=== PATIENT | female | born 2000 | race Two or more races ===

== ENCOUNTER 2021-02-26 12:02 | Inpatient (IN) | payer OTHER ==
[~2021-02-26] VITALS: Ht 157.5 cm; Wt 49.9 kg
[~2021-02-26 12:02] MED LIST: LEVSIN/SL0.125 MG SL; PRENATABS RX T1 EACH PO; TRAMADOL HCL50 MG PO
[2021-02-26] MEDS ORDERED: PEPCID AC20 MG (12:15)
[2021-02-26] MEDS ORDERED: MILLIPRED DP5 MG (12:15)
[2021-02-27] MEDS ORDERED: BENZONATATE100 MG (08:08)
[2021-02-27] MEDS ORDERED: LEVALBUTER0.63 MG/3 (08:08)
[2021-03-06] MEDS ORDERED: LEVOFLOXACIN500 MG PO (12:39)
[2021-03-06] MEDS ORDERED: INTEGRA F CAPS1 EACH PO (12:43)
[2021-03-06] MEDS ORDERED: ULTRAM50 MG PO (12:45)
[2021-03-06] MEDS ORDERED: PROTONIX40 MG PO (12:45)
== END 2021-03-06 13:52 | disposition home or self-care (01) | DRG 345 ==
LOC: ER 12:02 → SURH 12:55
PROVIDERS: Urology; ADMIT Surgery; ATTEND Surgery
PROC: 0TJB8ZZ Inspection of Bladder, Via Natural or Artificial Opening Endoscopic (ICD-10-PCS; 2021-03-04)
PROC: BT1DYZZ Fluoroscopy of Right Kidney, Ureter and Bladder using Other Contrast (ICD-10-PCS; 2021-03-04)
PROC: 0TJ98ZZ Inspection of Ureter, Via Natural or Artificial Opening Endoscopic (ICD-10-PCS; 2021-03-04)
PROC: 0DW Gastrointestinal System, Revision (ICD-10-PCS; principal; 2021-03-04 09:00)
PROC: 0T9030Z Drainage of Right Kidney with Drainage Device, Percutaneous Approach (ICD-10-PCS; 2021-03-04 09:00)
DX: K51.818 Other ulcerative colitis with other complication (principal); T81.49XA Infection following a procedure, other surgical site, initial encounter; N13.1 Hydronephrosis with ureteral stricture, not elsewhere classified; N13.39 Other hydronephrosis; K94.19 Other complications of enterostomy; K91.858 Other complications of intestinal pouch; M41.86 Other forms of scoliosis, lumbar region; F43.20 Adjustment disorder, unspecified; Z90.49 Acquired absence of other specified parts of digestive tract; Z79.52 Long term (current) use of systemic steroids

== ENCOUNTER 2021-04-02 21:37 | Inpatient (IN) | payer OTHER ==
[~2021-04-02] VITALS: Ht 160 cm; Wt 49.9 kg
[~2021-04-02 21:37] MED LIST changes: +BENZONATATE100 MG; +INTEGRA F CAPS1 EACH PO; +LEVALBUTER0.63 MG/3; +LEVOFLOXACIN500 MG PO; +MILLIPRED DP5 MG; +PEPCID AC20 MG; +PROTONIX40 MG PO; +ULTRAM50 MG PO
[2021-04-04] MEDS ORDERED: BENZONATATE100 MG (08:21)
[2021-04-04] MEDS ORDERED: LEVALBUTER0.63 MG/3 (08:21)
[2021-04-05] MEDS ORDERED: CIPRO500 MG PO (15:11)
[2021-04-05] MEDS ORDERED: INTEGRA F CAPS1 EACH PO (15:11)
[2021-04-05] MEDS ORDERED: CARAFATE1 GM PO (16:25)
[2021-04-05] MEDS ORDERED: PEPCID AC20 MG PO (16:25)
[2021-04-05] MEDS ORDERED: ABANEU-SL TABL1 EACH SL (16:25)
== END 2021-04-05 21:37 | disposition home or self-care (01) | DRG 690 ==
LOC: ER 21:37 → SURH 04-03 11:00 → SEC-K 04-03 11:00 → SURH 04-03 17:42
PROVIDERS: ADMIT Internal Medicine Geriatric Medicine; ATTEND Internal Medicine Geriatric Medicine
PROC: BW21YZZ Computerized Tomography (CT Scan) of Abdomen and Pelvis using Other Contrast (ICD-10-PCS; principal; 2021-04-03)
PROC: 3E0F7SF Introduction of Other Gas into Respiratory Tract, Via Natural or Artificial Opening (ICD-10-PCS; 2021-04-03)
DX: N39.0 Urinary tract infection, site not specified (principal); R33.8 Other retention of urine; M54.89 Other dorsalgia; B96.89 Other specified bacterial agents as the cause of diseases classified elsewhere; R10.9 Unspecified abdominal pain; Z20.822 Contact with and (suspected) exposure to COVID-19

== ENCOUNTER 2021-04-15 11:00 | Inpatient (IN) | payer OTHER ==
[~2021-04-15] VITALS: Ht 160 cm; Wt 49.0 kg
[~2021-04-15 11:00] MED LIST changes: +ABANEU-SL TABL1 EACH SL; +CARAFATE1 GM PO; +CIPRO500 MG PO; +PEPCID AC20 MG PO
[2021-04-22] MEDS ORDERED: BENZONATATE100 MG (11:29)
[2021-04-25] MEDS ORDERED: PEPCID AC20 MG PO (08:45)
[2021-04-25] MEDS ORDERED: CARAFATE1 GM PO (08:45)
[2021-04-25] MEDS ORDERED: GABAPENTIN300 MG PO (08:46)
[2021-04-25] MEDS ORDERED: NORFLEX100MG PO (08:46)
[2021-04-25] MEDS ORDERED: INTEGRA F CAPS1 EACH PO (08:48)
== END 2021-04-25 16:55 | disposition home or self-care (01) | DRG 940 ==
LOC: SURH 04-22 05:13 → O/R 04-22 05:13 → SURG-SUITE 04-22 07:00 → SURH 04-22 15:44
PROVIDERS: Surgery; ADMIT Urology; ATTEND Urology
PROC: 0DSB4ZZ Reposition Ileum, Percutaneous Endoscopic Approach (ICD-10-PCS; principal; 2021-04-22 07:00)
PROC: 3E0F7GC Introduction of Other Therapeutic Substance into Respiratory Tract, Via Natural or Artificial Opening (ICD-10-PCS; 2021-04-22 07:00)
PROC: 0TS64ZZ Reposition Right Ureter, Percutaneous Endoscopic Approach (ICD-10-PCS; 2021-04-22 07:00)
PROC: 30233N1 Transfusion of Nonautologous Red Blood Cells into Peripheral Vein, Percutaneous Approach (ICD-10-PCS; 2021-04-24)
DX: Z93.2 Ileostomy status (principal); K68.11 Postprocedural retroperitoneal abscess; K51.011 Ulcerative (chronic) pancolitis with rectal bleeding; D64.9 Anemia, unspecified; J45.20 Mild intermittent asthma, uncomplicated; N13.5 Crossing vessel and stricture of ureter without hydronephrosis; D50.9 Iron deficiency anemia, unspecified; Z79.52 Long term (current) use of systemic steroids; N35.82 Other urethral stricture, female; M41.86 Other forms of scoliosis, lumbar region

== ENCOUNTER 2021-05-25 13:37 | Emergency (ER) | payer OTHER ==
[~2021-05-25] VITALS: Ht 160 cm; Wt 49.0 kg
[~2021-05-25 13:37] MED LIST changes: +GABAPENTIN300 MG PO; +NORFLEX100MG PO
[2021-05-25] MEDS ORDERED: MACROBID 100 M100 MG PO (18:35)
== END 2021-05-25 18:54 | disposition home or self-care (01) ==
LOC: ER 13:37
DX: N39.0 Urinary tract infection, site not specified (principal); R10.2 Pelvic and perineal pain; R11.11 Vomiting without nausea; R10.84 Generalized abdominal pain

== ENCOUNTER 2021-06-06 10:08 | Emergency (ER) | payer OTHER ==
[~2021-06-06] VITALS: Ht 160 cm; Wt 44.5 kg
[~2021-06-06 10:08] MED LIST changes: +MACROBID 100 M100 MG PO
== END 2021-06-06 15:34 | disposition home or self-care (01) ==
LOC: ER 10:08
DX: R11.11 Vomiting without nausea (principal)

== ENCOUNTER 2021-08-06 22:26 | Inpatient (IN) | payer OTHER ==
[~2021-08-06] VITALS: Ht 160 cm; Wt 45.8 kg
== END 2021-08-13 16:09 | disposition home or self-care (01) | DRG 660 ==
LOC: ER 22:26 → SEC-K 08-07 06:45 → SURH 08-07 06:45
PROVIDERS: Urology; ADMIT Internal Medicine Geriatric Medicine; ATTEND Internal Medicine Geriatric Medicine
PROC: 0T768DZ Dilation of Right Ureter with Intraluminal Device, Via Natural or Artificial Opening Endoscopic (ICD-10-PCS; principal; 2021-08-07 16:30)
DX: N13.39 Other hydronephrosis (principal); N30.00 Acute cystitis without hematuria; R10.9 Unspecified abdominal pain; Z20.822 Contact with and (suspected) exposure to COVID-19

== ENCOUNTER 2021-09-02 14:28 | Outpatient (CLI) | payer OTHER | END 2021-09-02 14:36 | disposition home or self-care (01) | LOC: SONOGRAMA 14:28 | PROVIDERS: ATTEND Obstetrics & Gynecology | DX: N83.291 Other ovarian cyst, right side (principal); N94.0 Mittelschmerz; R10.2 Pelvic and perineal pain; N94.89 Other specified conditions associated with female genital organs and menstrual cycle ==

== ENCOUNTER 2021-12-23 12:36 | Day surgery (SDC) | payer OTHER | END 2021-12-23 15:40 | disposition home or self-care (01) | LOC: AMB-ENDOS 12:36 | PROVIDERS: ATTEND Surgery | DX: K62.4 Stenosis of anus and rectum (principal); K62.89 Other specified diseases of anus and rectum ==

== ENCOUNTER 2022-01-27 14:18 | Inpatient (IN) | payer OTHER ==
[~2022-01-27] VITALS: Ht 157.5 cm; Wt 50.3 kg
[2022-01-31] MEDS ORDERED: METRONIDAZOLE500 MG PO (16:19)
[2022-01-31] MEDS ORDERED: CIPRO500 MG PO (16:19)
[2022-01-31] MEDS ORDERED: IMODIUM A-D2 M2 PO (16:20)
[2022-01-31] MEDS ORDERED: LEVSIN/SL0.125 MG SL (16:21)
[2022-01-31] MEDS ORDERED: PROTONIX40 MG PO (16:22)
== END 2022-01-31 19:13 | disposition home or self-care (01) | DRG 387 ==
LOC: ER 14:18 → SEC-K 22:55 → MEDI 01-29 11:23
PROVIDERS: ADMIT Surgery; ATTEND Surgery
PROC: BW21ZZZ Computerized Tomography (CT Scan) of Abdomen and Pelvis (ICD-10-PCS; principal; 2022-01-27)
PROC: 0DJD8ZZ Inspection of Lower Intestinal Tract, Via Natural or Artificial Opening Endoscopic (ICD-10-PCS; 2022-01-28)
DX: K51.818 Other ulcerative colitis with other complication (principal); K62.4 Stenosis of anus and rectum; K52.89 Other specified noninfective gastroenteritis and colitis; Z90.49 Acquired absence of other specified parts of digestive tract; Z20.822 Contact with and (suspected) exposure to COVID-19

== ENCOUNTER 2023-04-22 12:30 | Emergency (ER) | payer OTHER ==
[~2023-04-22] VITALS: Ht 160 cm; Wt 54.4 kg
[~2023-04-22 12:30] MED LIST changes: +IMODIUM A-D2 M2 PO; +METRONIDAZOLE500 MG PO
== END 2023-04-22 18:26 | disposition home or self-care (01) ==
LOC: ER 12:30
DX: R10.31 Right lower quadrant pain (principal); Z88.8 Allergy status to other drugs, medicaments and biological substances; Z20.822 Contact with and (suspected) exposure to COVID-19

== ENCOUNTER 2023-05-16 13:38 | Inpatient (IN) | payer OTHER ==
[~2023-05-16] VITALS: Ht 152.4 cm; Wt 56.2 kg
[2023-05-16] MEDS ORDERED: ALBUTEROL2.5 MG/3 M IH (13:43)
[2023-05-22] MEDS ORDERED: FAMOTIDINE20 MG PO (10:24)
[2023-05-22] MEDS ORDERED: PEXEVA10 MG PO (10:24)
[2023-05-22] MEDS ORDERED: IPRATROPIU0.2 MG/1 M IH (10:24)
[2023-05-22] MEDS ORDERED: CLONAZEPAM0.5 MG PO (10:24)
[2023-05-22] MEDS ORDERED: BENZONATATE100 MG PO (10:24)
[2023-05-22] MEDS ORDERED: prednisone PO (10:24)
== END 2023-05-22 13:07 | disposition home or self-care (01) | DRG 202 ==
LOC: ER 13:38 → MEDJ 22:17
PROVIDERS: ADMIT Internal Medicine; ATTEND Internal Medicine
PROC: BW24YZZ Computerized Tomography (CT Scan) of Chest and Abdomen using Other Contrast (ICD-10-PCS; principal; 2023-05-19)
PROC: B24BZZZ Ultrasonography of Heart with Aorta (ICD-10-PCS; 2023-05-19)
PROC: 4A12X4Z Monitoring of Cardiac Electrical Activity, External Approach (ICD-10-PCS; 2023-05-19)
DX: J45.51 Severe persistent asthma with (acute) exacerbation (principal); K51.80 Other ulcerative colitis without complications; R09.02 Hypoxemia; F41.0 Panic disorder [episodic paroxysmal anxiety]; Z20.822 Contact with and (suspected) exposure to COVID-19

== ENCOUNTER 2023-06-30 00:15 | Emergency (ER) | payer OTHER ==
[~2023-06-30] VITALS: Ht 160 cm; Wt 55.3 kg
[~2023-06-30 00:15] MED LIST changes: +ALBUTEROL2.5 MG/3 M IH; +BENZONATATE100 MG PO; +CLONAZEPAM0.5 MG PO; +FAMOTIDINE20 MG PO; +IPRATROPIU0.2 MG/1 M IH; +PEXEVA10 MG PO; +prednisone PO
== END 2023-06-30 03:51 | disposition home or self-care (01) ==
LOC: ER 00:15
DX: J45.901 Unspecified asthma with (acute) exacerbation (principal)

== ENCOUNTER 2023-06-30 13:10 | Emergency (ER) | payer OTHER ==
[~2023-06-30] VITALS: Ht 154.9 cm; Wt 56.7 kg
== END 2023-06-30 18:24 | disposition home or self-care (01) ==
LOC: ER 13:10
DX: J45.901 Unspecified asthma with (acute) exacerbation (principal); F41.0 Panic disorder [episodic paroxysmal anxiety]; Z20.822 Contact with and (suspected) exposure to COVID-19

== ENCOUNTER 2023-07-23 10:29 | Outpatient (CLI) | payer OTHER | END 2023-07-23 10:39 | disposition home or self-care (01) | LOC: SONOGRAMA 10:29 | PROVIDERS: ATTEND Urology | DX: N13.4 Hydroureter (principal); N13.1 Hydronephrosis with ureteral stricture, not elsewhere classified; R33.9 Retention of urine, unspecified ==

== ENCOUNTER 2024-06-20 09:15 | Inpatient (IN) | payer OTHER ==
[~2024-06-20] VITALS: Ht 157.5 cm; Wt 64.4 kg
[~2024-06-20 09:15] MED LIST changes: +MACRODANTIN100 M1 PO
[2024-06-20] MEDS ORDERED: PROAIR RESPICL90 MCG IH (14:24)
[2024-06-20] MEDS ORDERED: PULMICORT FLEX90 MCG IH (14:25)
[2024-06-20] MEDS ORDERED: VENTOLIN HFA18 GM IH (14:25)
[2024-06-20] MEDS ORDERED: ZYRTEC10 M3 PO (14:25)
[2024-06-27] MEDS ORDERED: BUPIVACAINE HCL/MPF 0.5% 30ML VIAL ONE (07:47)
[2024-06-27] MEDS ORDERED: LIDOCAINE HCL 1%/EPINEPHRINE 20ML VIAL IJ ONE (16:03)
[2024-06-27] MEDS ORDERED: BUPIVACAINE HCL/Mpf 0.5% 10ML VIAL ONE (16:03)
[2024-06-27] MEDS ORDERED: CEFOXITIN SODIUM 2,000 MG VIAL IV ONE (17:15)
[2024-06-27] MEDS ORDERED: SUGAMMADEX SODIUM 200 MG/2 ML VIAL IV ONE (17:56)
[2024-06-27] MEDS ORDERED: RINGERS SOLUTION,LACTATED 1,000 ML IV SCH (18:30)
[2024-06-27] MEDS ORDERED: MORPHINE SULFATE 4 MG/ML CARTRIDGE IV PRN (18:30)
[2024-06-27] MEDS ORDERED: OxyCODONE HCL 5 MG TABLET (ROXICODONE) PO PRN (18:30)
[2024-06-27] MEDS ORDERED: ONDANSETRON HCL 2 MG/ML VIAL IV PRN (18:30)
[2024-06-27] MEDS ORDERED: LEVALBUTEROL HCL 0.63 MG/3 ML SOLUTION IH PRN (18:45)
[2024-06-27] MEDS ORDERED: ACETAMINOPHEN 500 MG GEL..CAP PO SCH (20:00)
[2024-06-27] MEDS ORDERED: FAMOTIDINE/PF 20 MG/2 ML VIAL ONE (20:15)
[2024-06-27] MEDS ORDERED: SIMETHICONE 125 MG CAPSULE PO SCH (21:00)
[2024-06-27] MEDS ORDERED: FAMOTIDINE/PF 20 MG/2 ML VIAL IV PUSH SCH (21:00)
[2024-06-28] MEDS ORDERED: GABAPENTIN 300 MG CAPSULE PO SCH (01:00)
[2024-06-28] MEDS ORDERED: TRAMADOL HCL50 MG PO (08:26)
[2024-06-28] MEDS ORDERED: HYOSCYAMINE SULFATE 0.125 MG TAB.SUBL SL SCH (09:00)
[2024-06-28] MEDS ORDERED: ENOXAPARIN SODIUM 40 MG/0.4 ML SYRINGE SUBCUTANEO SCH (17:00)
[2024-06-29] MEDS ORDERED: ENOXAPARIN SODIUM 40 MG/0.4 ML SYRINGE SUBCUTANEO SCH (09:00)
== END 2024-06-28 13:40 | disposition home or self-care (01) | DRG 354 ==
LOC: O/R 06-27 07:01 → SURG 06-27 07:01
PROVIDERS: ADMIT Surgery; ATTEND Surgery
PROC: 0D7B8ZZ Dilation of Ileum, Via Natural or Artificial Opening Endoscopic (ICD-10-PCS; 2024-06-27)
PROC: 3E0F7GC Introduction of Other Therapeutic Substance into Respiratory Tract, Via Natural or Artificial Opening (ICD-10-PCS; 2024-06-27)
PROC: 0WUF4JZ Supplement Abdominal Wall with Synthetic Substitute, Percutaneous Endoscopic Approach (ICD-10-PCS; principal; 2024-06-27 13:45)
DX: K43.2 Incisional hernia without obstruction or gangrene (principal); K51.90 Ulcerative colitis, unspecified, without complications; K56.699 Other intestinal obstruction unspecified as to partial versus complete obstruction; Z20.822 Contact with and (suspected) exposure to COVID-19; J45.20 Mild intermittent asthma, uncomplicated

== ENCOUNTER 2024-06-29 17:24 | Inpatient (IN) | payer OTHER ==
[~2024-06-29] VITALS: Ht 160 cm; Wt 63.5 kg
[~2024-06-29 17:24] MED LIST changes: +PROAIR RESPICL90 MCG IH; +PULMICORT FLEX90 MCG IH; +VENTOLIN HFA18 GM IH; +ZYRTEC10 M3 PO
--- NOTE | 2024-06-29 17:32 | NUR ---
PTE ALERTA Y ORIENTADA X3. REFIERE DONNA SIDO OPERADA EL [address]MARLA ASENCIO DE JJ HERNIA EN EL ABDOMEN EN DONDE TUVO JJ ILEOSTOMIA HACE MARTIN ANOS. AL MOMENTO DE TRIAGE REFIERE MAREOS Y SOBRE 15 VOMITOS DESDE LA MADRUGADA DE HOY SE ANDRESSA SV Y SE UBICA
[2024-06-29] MEDS ORDERED: ONDANSETRON HCL 2 MG/ML VIAL IV ONE (18:00)
[2024-06-29] MEDS ORDERED: 0.9 % SODIUM CHLORIDE 500 ML IV SCH (18:00)
[2024-06-29] MEDS ORDERED: MORPHINE SULFATE 4 MG/ML CARTRIDGE IV ONE ×2 (18:00→18:15)
[2024-06-29] MEDS ORDERED: FAMOTIDINE/PF 20 MG/2 ML VIAL IV ONE (18:00)
[2024-06-29] MEDS ORDERED: FAMOTIDINE/PF 20 MG/2 ML VIAL ONE (18:10)
[2024-06-29] MEDS ORDERED: ONDANSETRON HCL 2 MG/ML VIAL ONE ×2 (18:10→18:12)
--- NOTE | 2024-06-29 18:21 | NUR ---
SE LE ORIENTA A PTE SOBRE TRATAMIENTO E INSTRUCCIONES A SEGUIR, ELISEO REFIERE ENTENDER. SE COLECTA MUESTRAS, SE CANALIZA Y SE ADMINISTRA MEDICAMENTO EMILIA ORDEN MEDICA
[2024-06-29 18:38] LABS: HEMATOCRIT 39.5 % (36.0-45.00); HEMOGLOBIN 13.8 g/dL (12.0-15.00); MEAN CELL VOLUME 83.2 fL (80.00-100.00); MEAN CORPUSCULAR HGB CONC 34.8 g/dl (32.0-36.0); PLATELET COUNT 300 K/uL (150-450); RED BLOOD COUNT 4.75 M/uL (4.00-6.00); RED CELL DISTRIBUTION WIDTH 15.2 % (11.5-14.5)
[2024-06-29 18:47] LABS: CALCIUM 10.2 mg/dL (8.5-10.1); CREATININE SERUM 0.78 mg/dL (0.55-1.02); GFR 90.73; POTASSIUM 3.9 mEq/L (3.5-5.1)
[2024-06-29 18:59] LABS: URINE APPEARANCE Cloudy; URINE BILIRRUBIN Small (NEGATIVE); URINE BLOOD Negative; URINE COLOR Dark Yellow; URINE GLUCOSE Negative (NEGATIVE); URINE LEUKOCYTE Moderate; URINE NITRATE Negative; URINE PROTEIN 30 (NEGATIVE); URINE UROBILINOGEN 0.2 E.U./dl
[2024-06-29 19:00] LABS: URINE BACTERIA 4519.5 uL (0.0-1933); URINE EPITHELIAL CELLS 99.7 uL (0.0-38.8); URINE RBC 7.1 uL (0.0-20.8); URINE WBC 314.2 uL (0.0-23.2)
[2024-06-29 19:08] LABS: INR 0.96; PARTIAL THROMBOPLASTIN TIME 28.2 SECONDS (22.0-34.0); PROTHROMBIN TIME 10.1 SECONDS (9.0-11.5)
[2024-06-29 19:39] LABS: URINE CAST 0.15 uL (0.0-1.40); URINE KETONE >=160 (NEGATIVE)
[2024-06-29] MEDS ORDERED: LIDOCAINE HCL VISCOUS 20MG/ML BLIST 15ML MM ONE (20:22)
[2024-06-29] MEDS ORDERED: MORPHINE SULFATE 4 MG/ML VIAL IV ONE (21:00)
--- NOTE | 2024-06-29 21:23 | NUR ---
SE COLOCA TUBO NASO GASTRICO POR FOSA IZQUIERDA SE OBSERVA [address] ML DE EGRESO SE CONFIRMA MEDIANTE AUSCULTACION
[2024-06-29] MEDS ORDERED: CEFTRIAXONE SODIUM 2,000 MG in 0.9 % SODIUM CHLORIDE 100 ML IV SCH (21:29)
[2024-06-29] MEDS ORDERED: ONDANSETRON HCL 4 MG in 0.9 % SODIUM CHLORIDE 50 ML IV PRN (21:30)
[2024-06-29] MEDS ORDERED: ACETAMINOPHEN 500 MG GEL..CAP PO PRN (21:30)
[2024-06-29] MEDS ORDERED: METOCLOPRAMIDE HCL 5 MG/ML VIAL IM SCH (21:30)
[2024-06-29] MEDS ORDERED: MEPERIDINE HCL/PF 25 MG/ML VIAL IM PRN ×2 (21:45)
[2024-06-29] MEDS ORDERED: RINGERS SOLUTION,LACTATED 1,000 ML IV SCH (21:45)
[2024-06-29] MEDS ORDERED: CEFTRIAXONE SODIUM 2,000 MG VIAL ONE (22:09)
[2024-06-29] MEDS ORDERED: METOCLOPRAMIDE HCL 5 MG/ML VIAL ONE ×2 (22:09→22:13)
[2024-06-30] MEDS ORDERED: FAMOTIDINE/PF 20 MG in 0.9 % SODIUM CHLORIDE 8 ML IV PUSH SCH (09:00)
[2024-06-30] MEDS ORDERED: METRONIDAZOLE/SODIUM CHLORIDE 100 ML IV SCH (17:00)
[2024-06-30] MEDS ORDERED: PANTOPRAZOLE SODIUM 40 MG/VIAL VIAL IV STA (21:20)
[2024-06-30] MEDS ORDERED: ENOXAPARIN SODIUM 40 MG/0.4 ML SYRINGE SUBCUTANEO STA (21:21)
[2024-07-01] MEDS ORDERED: PANTOPRAZOLE SODIUM 40 MG/VIAL VIAL IV SCH (06:00)
[2024-07-01 07:13] LABS: HEMATOCRIT 34.4 % (36.0-45.00); HEMOGLOBIN 12.5 g/dL (12.0-15.00); MEAN CELL VOLUME 82.1 fL (80.00-100.00); MEAN CORPUSCULAR HEMOGLOBIN 29.7 pg (27.00-32.0); MEAN CORPUSCULAR HGB CONC 36.2 g/dl (32.0-36.0); PLATELET COUNT 346 K/uL (150-450); RED BLOOD COUNT 4.19 M/uL (4.00-6.00); RED CELL DISTRIBUTION WIDTH 15.3 % (11.5-14.5)
[2024-07-01 07:35] LABS: ALBUMIN 3.4 gm/dL (3.4-5.0); BILIRUBIN TOTAL 0.81 mg/dL (0.3-1.2); CALCIUM 8.9 mg/dL (8.5-10.1); CREATININE SERUM 0.74 mg/dL (0.55-1.02); GFR 96.42; GLOBULINA 3.4 G/DL (2.4-3.5); MAGNESIUM 2.1 mg/dL (1.8-2.4); PHOSPHOROUS 2.3 mg/dL (2.5-4.9); POTASSIUM 3.63 mEq/L (3.5-5.1); TOTAL PROTEIN 6.8 gm/dL (6.4-8.2)
[2024-07-01 07:40] LABS: C-REACTIVE PROTEIN 3.86 MG/DL (0.00-0.29)
[2024-07-01] MEDS ORDERED: NAPH,MB-DB/K PH,MBDB 1 PKT PACKET PO NR (11:15)
[2024-07-01] MEDS ORDERED: POTASSIUM PHOS,M-BASIC-D-BASIC 3 MM/ML VIAL IV ONE (13:00)
[2024-07-01] MEDS ORDERED: ENOXAPARIN SODIUM 40 MG/0.4 ML SYRINGE SUBCUTANEO SCH (17:00)
== END 2024-07-01 14:25 | disposition home or self-care (01) | DRG 389 ==
LOC: EMR PED 17:24 → ER 17:27 → SURH 21:54 → SEC-K 21:54 → SURH 06-30 00:56
PROVIDERS: General Practice; Internal Medicine Infectious Disease; ADMIT Surgery; ATTEND Surgery
PROC: BW21ZZZ Computerized Tomography (CT Scan) of Abdomen and Pelvis (ICD-10-PCS; principal; 2024-06-29)
DX: K56.0 Paralytic ileus (principal); N39.0 Urinary tract infection, site not specified; K56.609 Unspecified intestinal obstruction, unspecified as to partial versus complete obstruction; K29.70 Gastritis, unspecified, without bleeding; K21.9 Gastro-esophageal reflux disease without esophagitis

== ENCOUNTER 2025-09-07 14:43 | Inpatient (IN) | payer OTHER ==
[~2025-09-07] VITALS: Ht 160 cm; Wt 59.0 kg
--- NOTE | 2025-09-07 15:05 | NUR ---
PACIENTE FEMINA, S/V EN PARAMETYROS, C/C VOMITOS, LLEGO EN AMBULANCIA PARMAEDICO [address], DE [facility], SE UBICA EN CAMA 11 OBSERVACION PARA SER EVALUADA.
[2025-09-07] MEDS ORDERED: 0.9 % SODIUM CHLORIDE 1,000 ML IV ONE (16:30)
[2025-09-07] MEDS ORDERED: ONDANSETRON HCL 2 MG/ML VIAL IV ONE ×2 (16:30→21:30)
[2025-09-07] MEDS ORDERED: KETOROLAC TROMETHAMINE 30 MG VIAL IV ONE (16:45)
[2025-09-07] MEDS ORDERED: FAMOTIDINE/PF 20 MG/2 ML VIAL IV ONE (16:45)
[2025-09-07] MEDS ORDERED: ACETAMINOPHEN 500 MG GEL..CAP PO ONE ×2 (16:45→18:01)
[2025-09-07] MEDS ORDERED: CIPROFLOXACIN IN 5 % DEXTROSE 400 MG/200 ML PIGGYBAG IV ONE ×2 (17:00→18:01)
[2025-09-07] MEDS ORDERED: METRONIDAZOLE/SODIUM CHLORIDE 500 MG/100 ML PIGGYBACK IV ONE ×2 (17:00→18:01)
[2025-09-07] MEDS ORDERED: ONDANSETRON HCL 2 MG/ML VIAL ONE ×2 (18:01→22:23)
[2025-09-07] MEDS ORDERED: DIATRIZOATE MEGLUMINE, SODIUM 30 ML BOTTLE ONE (18:02)
[2025-09-07] MEDS ORDERED: FAMOTIDINE/PF 20 MG/2 ML VIAL ONE (18:02)
[2025-09-07 18:46] LABS: BASO % 0.5 % (0.1-1.2); EOS # 0.01 (0.04-0.54); EOS % 0.3 % (0.7-7.0); LYMPH # 0.25 (1.18-3.74); LYMPH % 6.7 % (19.3-53.1); MEAN PLATELET VOLUME 10.10 fl (9.4-12.4); MONO # 0.27 (0.24-0.82); MONO % 7.2 % (4.7-12.5); NEUT # 3.18 (1.56-6.13); NEUT % 85.0 % (34.0-71.1); RED CELL DISTRIBUTION WIDTH 13.4 % (11.6-14.4)
--- NOTE | 2025-09-07 18:56 | NUR ---
PACIENTE ALERTA Y ORIENTADA X3. SE EDUCA SOBRE PROCESO DE VLADIMIR DE MUESTRAS, CANALIZACION Y ADMINISTRACION DE MEDICAMENTOS, REFIERE ENTENDER. SE EJECUTAN ORDENES BAJO MEDIDAS ASEPTICAS. SE HACE ENTREGA DE ENVASE PARA VLADIMIR DE U/A Y FECALES. SE HACE ENTREGA DE CONTRASTE PO, PENDIENTE A CT.
[2025-09-07 19:16] LABS: COVID-19 AG NEGATIVE (NEGATIVE)
[2025-09-07 19:42] LABS: URINE APPEARANCE Cloudy; URINE BILIRRUBIN Negative (NEGATIVE); URINE BLOOD Negative; URINE COLOR Yellow; URINE GLUCOSE Negative (NEGATIVE); URINE KETONE Trace (NEGATIVE); URINE LEUKOCYTE Small; URINE NITRATE Negative; URINE PROTEIN Trace (NEGATIVE); URINE UROBILINOGEN 1.0 E.U./dl
[2025-09-07 19:46] LABS: URINE BACTERIA 2744.1 uL (0.0-1933); URINE EPITHELIAL CELLS 86.7 uL (0.0-38.8); URINE RBC 4.8 uL (0.0-20.8); URINE WBC 118.8 uL (0.0-23.2)
[2025-09-07 19:48] LABS: ALT/SGPT 13.0 U/L (12-78); AST/SGOT 11.0 U/L (15-37); BILIRUBIN TOTAL 1.17 mg/dL (0.3-1.2); BUN CREA RATIO 19.0 (7.0-25.0); CREATININE SERUM 0.62 mg/dL (0.55-1.02); GFR 117.28; GLOBULINA 2.8 G/DL (2.4-3.5); GLUCOSE FASTING 89.0 mg/dL (65-100); OSMOLALITY SERUM 280.0 MOSM/KG (275-295)
[2025-09-07 19:54] LABS: URINE CAST 0.29 uL (0.0-1.40)
[2025-09-07] MEDS ORDERED: HYOSCYAMINE SULFATE 0.125 MG TAB.SUBL SL ONE (23:15)
[2025-09-07] MEDS ORDERED: CHOLESTYRAMINE/ASPARTAME LIGHT 4 G/PKT PACKET PO ONE (23:15)
[2025-09-07] MEDS ORDERED: 0.9 % SODIUM CHLORIDE 1,000 ML IV SCH (23:15)
[2025-09-07] MEDS ORDERED: PANTOPRAZOLE SODIUM 40 MG/VIAL VIAL IV ONE (23:15)
[2025-09-07] MEDS ORDERED: HYOSCYAMINE SULFATE 0.125 MG TAB.SUBL ONE (23:49)
[2025-09-08] MEDS ORDERED: CEFTRIAXONE SODIUM 2,000 MG in 0.9 % SODIUM CHLORIDE 100 ML IV SCH (14:20)
[2025-09-08] MEDS ORDERED: FAMOTIDINE/PF 20 MG in 0.9 % SODIUM CHLORIDE 8 ML IV PUSH SCH (14:21)
[2025-09-08] MEDS ORDERED: ONDANSETRON HCL 4 MG in 0.9 % SODIUM CHLORIDE 50 ML IV PRN (14:30)
[2025-09-08] MEDS ORDERED: DEXTROSE 5 % AND 0.9 % NACL 1,000 ML IV SCH (14:30)
[2025-09-08] MEDS ORDERED: MORPHINE SULFATE 2 MG/ML SYRINGE IV PRN (14:30)
[2025-09-08] MEDS ORDERED: ACETAMINOPHEN 500 MG GEL..CAP PO PRN (14:30)
[2025-09-08] MEDS ORDERED: ENOXAPARIN SODIUM 40 MG/0.4 ML SYRINGE SUBCUTANEO SCH (17:00)
[2025-09-08 19:19] LABS: INR 1.03
[2025-09-09 01:15] VITALS: BP 76/51; O2SAT 100
[2025-09-09 01:28] LABS: BASO % 0.6 % (0.1-1.2); EOS # 0.04 (0.04-0.54); EOS % 1.2 % (0.7-7.0); LYMPH # 0.84 (1.18-3.74); LYMPH % 24.9 % (19.3-53.1); MEAN PLATELET VOLUME 11.20 fl (9.4-12.4); MONO # 0.39 (0.24-0.82); MONO % 11.5 % (4.7-12.5); NEUT # 2.08 (1.56-6.13); NEUT % 61.5 % (34.0-71.1); RED CELL DISTRIBUTION WIDTH 13.8 % (11.6-14.4)
[2025-09-09 01:36] LABS: ERYTHROCYTE SEDIMENTATION RATE 1 mm/hr (0-20)
[2025-09-09 01:53] LABS: ALT/SGPT 14.0 U/L (12-78); AST/SGOT 15.0 U/L (15-37); BILIRUBIN TOTAL 0.28 mg/dL (0.3-1.2); BUN CREA RATIO 9.0 (7.0-25.0); CREATININE SERUM 0.68 mg/dL (0.55-1.02); GFR 105.42; GLOBULINA 2.5 G/DL (2.4-3.5); GLUCOSE FASTING 95.0 mg/dL (65-100); OSMOLALITY SERUM 279.0 MOSM/KG (275-295)
[2025-09-09 02:21] VITALS: BP 81/55; O2SAT 99
[2025-09-09 08:00] VITALS: BP 95/66; O2SAT 98
[2025-09-09] MEDS ORDERED: ORPHENADRINE CITRATE 30 MG/ML AMPUL IM PRN (12:00)
[2025-09-09 16:00] VITALS: BP 93/64; O2SAT 99
[2025-09-09] MEDS ORDERED: SOD FERRIC GLUC COMPLX/SUCROSE 62.5 MG in 0.9 % SODIUM CHLORIDE 50 ML IV SCH (17:22)
[2025-09-10 00:39] VITALS: BP 89/52; O2SAT 100
[2025-09-10 08:00] VITALS: BP 94/60; O2SAT 95
[2025-09-10 16:56] VITALS: BP 92/62; O2SAT 100
[2025-09-11 01:22] VITALS: BP 83/57; O2SAT 100
[2025-09-11 06:46] LABS: BASO % 0.4 % (0.1-1.2); EOS # 0.08 (0.04-0.54); EOS % 3.3 % (0.7-7.0); LYMPH # 1.31 (1.18-3.74); LYMPH % 54.6 % (19.3-53.1); MEAN PLATELET VOLUME 10.90 fl (9.4-12.4); MONO # 0.31 (0.24-0.82); NEUT # 0.68 (1.56-6.13); NEUT % 28.4 % (34.0-71.1); RED CELL DISTRIBUTION WIDTH 13.5 % (11.6-14.4)
[2025-09-11 07:38] LABS: ALT/SGPT 37 U/L (12-78); AST/SGOT 40 U/L (15-37); BILIRUBIN TOTAL 0.21 mg/dL (0.3-1.2); BUN CREA RATIO 8 (7.0-25.0); CREATININE SERUM 0.48 mg/dL (0.55-1.02); GFR 157.58; GLOBULINA 2.6 G/DL (2.4-3.5); GLUCOSE FASTING 90 mg/dL (65-100); OSMOLALITY SERUM 281 MOSM/KG (275-295)
[2025-09-11 07:53] LABS: MONO % 12.9 % (4.7-12.5)
[2025-09-11 08:00] VITALS: BP 94/64; O2SAT 99
[2025-09-11] MEDS ORDERED: MEROPENEM 500 MG/VIAL VIAL IV SCH (12:00)
[2025-09-11] MEDS ORDERED: fentaNYL CITRATE 50 MCG/ML AMPUL IV PUSH ONE (12:45)
[2025-09-11] MEDS ORDERED: MIDAZOLAM HCL 2 MG/2 ML VIAL IV ONE (12:45)
[2025-09-11] MEDS ORDERED: DIPHENHYDRAMINE HCL 50 MG/ML VIAL 1ML IV ONE (12:45)
[2025-09-11] MEDS ORDERED: MIDAZOLAM HCL 2 MG/2 ML VIAL IV PUSH ONE (13:00)
[2025-09-11] MEDS ORDERED: METOCLOPRAMIDE HCL 5 MG/5 ML BLIST.PACK PO STA (16:12)
[2025-09-11] MEDS ORDERED: PROMETHAZINE HCL 50 MG/ML AMPUL IM STA (16:12)
[2025-09-11] MEDS ORDERED: PROMETHAZINE HCL 50 MG/ML AMPUL IM ONE (16:20)
[2025-09-11] MEDS ORDERED: METOCLOPRAMIDE HCL 5 MG/ML VIAL IV STA (16:33)
[2025-09-11 16:41] VITALS: BP 102/71; O2SAT 98
[2025-09-11] MEDS ORDERED: PANTOPRAZOLE SODIUM 40 MG in 0.9 % SODIUM CHLORIDE 8 ML IV PUSH SCH (17:00)
[2025-09-12 00:30] VITALS: BP 92/60; O2SAT 98
[2025-09-12 06:24] LABS: BASO % 0.4 % (0.1-1.2); EOS # 0.01 (0.04-0.54); EOS % 0.4 % (0.7-7.0); LYMPH # 1.42 (1.18-3.74); LYMPH % 50.7 % (19.3-53.1); MEAN PLATELET VOLUME 10.60 fl (9.4-12.4); MONO # 0.35 (0.24-0.82); NEUT # 1.00 (1.56-6.13); NEUT % 35.6 % (34.0-71.1); RED CELL DISTRIBUTION WIDTH 13.5 % (11.6-14.4)
[2025-09-12 06:38] LABS: MONO % 12.5 % (4.7-12.5)
[2025-09-12 08:00] VITALS: BP 91/60; O2SAT 99
[2025-09-12] MEDS ORDERED: FLUCONAZOLE 100 MG TABLET PO NR (11:00)
[2025-09-12] MEDS ORDERED: CLOTRIMAZOLE 21GM VAG. CREAM.APPL VAG SCH (12:00)
[2025-09-12] MEDS ORDERED: SIMETHICONE 125 MG CAPSULE PO SCH (13:00)
[2025-09-12 16:14] VITALS: BP 110/72; BP 93/60; O2SAT 100
[2025-09-13 00:38] VITALS: BP 90/57; O2SAT 100
[2025-09-13] MEDS ORDERED: FLUCONAZOLE 100 MG TABLET PO SCH (09:00)
[2025-09-13 11:04] LABS: BASO % 0.3 % (0.1-1.2); EOS # 0.07 (0.04-0.54); EOS % 1.9 % (0.7-7.0); LYMPH # 1.55 (1.18-3.74); LYMPH % 41.8 % (19.3-53.1); MEAN PLATELET VOLUME 10.90 fl (9.4-12.4); MONO # 0.31 (0.24-0.82); MONO % 8.4 % (4.7-12.5); NEUT # 1.76 (1.56-6.13); NEUT % 47.3 % (34.0-71.1); RED CELL DISTRIBUTION WIDTH 13.4 % (11.6-14.4)
[2025-09-13 12:47] LABS: ALT/SGPT 322.0 U/L (12-78); AST/SGOT 412.0 U/L (15-37); BILIRUBIN TOTAL 0.46 mg/dL (0.3-1.2); BUN CREA RATIO 11.0 (7.0-25.0); CREATININE SERUM 0.54 mg/dL (0.55-1.02); GFR 137.55; GLOBULINA 3.0 G/DL (2.4-3.5)
[2025-09-13 12:56] LABS: GLUCOSE FASTING 110.0 mg/dL (65-100); OSMOLALITY SERUM 281.0 MOSM/KG (275-295)
[2025-09-13 13:45] LABS: CORTISOL 20.63 ug/dl; FOLIC ACID 16.53 ng/ml (4.78-20)
[2025-09-13 16:25] VITALS: BP 99/68; O2SAT 100
[2025-09-13] MEDS ORDERED: POTASSIUM PHOS,M-BASIC-D-BASIC 3 MM/ML VIAL IV ONE (17:00)
[2025-09-13] MEDS ORDERED: ONDANSETRON HCL 2 MG/ML VIAL IV PRN (18:00)
[2025-09-13 22:16] LABS: T4 TOTAL 11.96 UG/DL (4.8-13.9); TSH 1.1 uIU/mL (0.358-3.74)
[2025-09-14 01:23] VITALS: BP 89/68; O2SAT 100
[2025-09-14 07:20] LABS: BASO % 0.5 % (0.1-1.2); EOS # 0.11 (0.04-0.54); EOS % 2.8 % (0.7-7.0); LYMPH # 1.69 (1.18-3.74); LYMPH % 43.1 % (19.3-53.1); MEAN PLATELET VOLUME 10.40 fl (9.4-12.4); MONO # 0.42 (0.24-0.82); MONO % 10.7 % (4.7-12.5); NEUT # 1.65 (1.56-6.13); NEUT % 42.1 % (34.0-71.1); RED CELL DISTRIBUTION WIDTH 13.3 % (11.6-14.4)
[2025-09-14 08:00] LABS: ALT/SGPT 309.0 U/L (12-78); AST/SGOT 262.0 U/L (15-37); BILIRUBIN TOTAL 0.38 mg/dL (0.3-1.2); BILIRUBIN,CONJUGATED 0.12 mg/dL (0.0-0.2)
[2025-09-14 10:17] VITALS: BP 93/58; O2SAT 97
[2025-09-14 16:00] VITALS: BP 100/69; O2SAT 100
[2025-09-15 01:00] VITALS: BP 91/59; O2SAT 99
[2025-09-15 08:41] LABS: BASO % 0.4 % (0.1-1.2); BUN CREA RATIO 13.0 (7.0-25.0); CREATININE SERUM 0.4 mg/dL (0.55-1.02); EOS # 0.14 (0.04-0.54); EOS % 2.6 % (0.7-7.0); GFR 194.48; GLUCOSE FASTING 81.0 mg/dL (65-100); LYMPH # 1.53 (1.18-3.74); LYMPH % 28.6 % (19.3-53.1); MEAN PLATELET VOLUME 10.60 fl (9.4-12.4); MONO # 0.50 (0.24-0.82); MONO % 9.3 % (4.7-12.5); NEUT # 3.01 (1.56-6.13); NEUT % 56.3 % (34.0-71.1); OSMOLALITY SERUM 281.0 MOSM/KG (275-295); RED CELL DISTRIBUTION WIDTH 13.2 % (11.6-14.4)
[2025-09-16 09:07] LABS: hav igm Negative (Negative); hep b c Negative (Negative); hep b s ag Negative (Negative)
[2025-09-16 11:11] LABS: ACTH 5.9 pg/mL (7.2-63.3); vca igm ab 89.3 U/mL (0.0-35.9)
== END 2025-09-15 11:26 | disposition home or self-care (01) | DRG 394 ==
LOC: ER 14:43 → SURH 09-08 14:26 → SEC-K 09-08 14:26 → SURH 09-08 15:53 → SURG 09-08 18:25 → SURH 09-08 21:28
PROVIDERS: General Practice; Internal Medicine Endocrinology, Diabetes & Metabolism; Internal Medicine Geriatric Medicine; Internal Medicine Infectious Disease; Surgery; ADMIT Surgery; ATTEND Surgery
PROC: BW21ZZZ Computerized Tomography (CT Scan) of Abdomen and Pelvis (ICD-10-PCS; 2025-09-07)
PROC: 0DJD8ZZ Inspection of Lower Intestinal Tract, Via Natural or Artificial Opening Endoscopic (ICD-10-PCS; principal; 2025-09-11)
PROC: 0D788ZZ Dilation of Small Intestine, Via Natural or Artificial Opening Endoscopic (ICD-10-PCS; 2025-09-11)
PROC: 0DB88ZX Excision of Small Intestine, Via Natural or Artificial Opening Endoscopic, Diagnostic (ICD-10-PCS; 2025-09-11)
PROC: 02HV33Z Insertion of Infusion Device into Superior Vena Cava, Percutaneous Approach (ICD-10-PCS; 2025-09-14)
DX: K91.850 Pouchitis (principal); E27.40 Unspecified adrenocortical insufficiency; K51.90 Ulcerative colitis, unspecified, without complications; N39.0 Urinary tract infection, site not specified; K52.9 Noninfective gastroenteritis and colitis, unspecified; D72.819 Decreased white blood cell count, unspecified; J45.909 Unspecified asthma, uncomplicated; D64.9 Anemia, unspecified; B96.20 Unspecified Escherichia coli [E. coli] as the cause of diseases classified elsewhere